=== PATIENT | male | born 1930 | race Caucasian/White ===

== ENCOUNTER 2017-12-15 09:10 | Day surgery (SDC) | payer MEDICARE, BC ==
[~2017-12-15] VITALS: Ht 170.2 cm; Wt 81.8 kg
[~2017-12-15 09:10] MED LIST: ASPI-1265 PO; ATOR40TA3 PO; BUDE10.22 INH; DIGO125T PO; DOCU100C41 PO; ESCI5TAB PO; FERR134T2 PO; FINA5TAB3 PO; LANS30CA37 PO; LEVO25TA2 PO; MAGN400C PO; PRESSERVISION PO; SILO8CAP2 PO; TIOT18CA3 INH
[2017-12-15] MEDS ORDERED: fentaNYL/PF 50MCG/1 ML 2ML syringe ONE ×2 (09:17→09:27)
[2017-12-15] MEDS ORDERED: LIDOcaine Viscous 15ml cup ONE ×2 (09:17→09:27)
[2017-12-15] MEDS ORDERED: MIDAZolam 5mg/5ml vial ONE ×2 (09:17→09:27)
[2017-12-15 09:25] VITALS: BP 150/70
[2017-12-15 10:33] VITALS: BP 160/76
[2017-12-15 10:43] VITALS: BP 159/71
[2017-12-15 10:53] VITALS: BP 165/79
[2017-12-15 11:03] VITALS: BP 160/75
[2017-12-15] MEDS ORDERED: epiNEPHrine 0.1mg/ml 10ml syringe ONE (11:08)
[2017-12-15 11:28] LABS: HEMATOCRIT 32.5 % (42.0-52.0); HEMOGLOBIN 11.4 g/dl (14.0-17.9); MEAN CORPUSCULAR HEMOGLOBIN 33.2 PG (27.0-31.0); MEAN CORPUSCULAR VOLUME 94.7 FL (78-98); RED BLOOD COUNT 3.43 X10'6 (4.70-6.10); WHITE BLOOD COUNT 5.6 X10'3 (4.5-11.0)
[2017-12-15 11:29] LABS: BASOPHILS % (AUTO) 0.8 % (0-1); EOSINOPHILS # (AUTO) 0.2 X10'3 (0-0.9); EOSINOPHILS % (AUTO) 3.2 % (0-6); LYMPHOCYTES # (AUTO) 0.9 X10'3 (1.1-4.8); LYMPHOCYTES % (AUTO) 15.9 % (21-51); MEAN CORPUSCULAR HGB CONC 35.1 % (33.0-36.5); MEAN PLATELET VOLUME 8.5 FL (7.4-10.4); MONOCYTES # (AUTO) 0.5 X10'3 (0-0.9); MONOCYTES % (AUTO) 9.1 % (2-12); PLATELET COUNT 202 X10'3 (140-440); RED CELL DISTRIBUTION WIDTH 14.1 % (11.5-14.5)
== END 2017-12-15 11:33 | disposition home or self-care (01) ==
LOC: GI LAB 09:10
PROVIDERS: ATTEND Internal Medicine Gastroenterology
DX: K92.2 Gastrointestinal hemorrhage, unspecified (principal); K22.8 Other specified diseases of esophagus; K21.9 Gastro-esophageal reflux disease without esophagitis; J44.9 Chronic obstructive pulmonary disease, unspecified; Z79.82 Long term (current) use of aspirin; Z87.891 Personal history of nicotine dependence; Z85.118 Personal history of other malignant neoplasm of bronchus and lung; Z72.89 Other problems related to lifestyle; Z85.828 Personal history of other malignant neoplasm of skin; Z79.899 Other long term (current) drug therapy; Z98.890 Other specified postprocedural states
CPT/HCPCS: 36415; 43255; 43450; 85025; G0500; J0171; J2250; J3010; J7030; 99152; A4620